=== PATIENT | female | born 1955 | race Caucasian/White ===

== ENCOUNTER → 2024-03-06 11:38 | Outpatient (CLI) | payer OTHER, SELFPAY ==
--- NOTE | 2024-03-06 11:39 | DI.CT.S_ITS ---
PROCEDURE: CT CHEST WO CON INDICATIONS: EVAL OF PULMONARY NODULE,CHRONIC COUGH,ASTHMA TECHNIQUE: Noncontrast 5 mm thick sections acquired from the pulmonary apices to the posterior costophrenic angles. 1 mm lung window, 5 mm thick coronal and sagittal and 7 mm axial MIP reformats were then acquired. For radiation dose reduction, the following was used: automated exposure control, adjustment of mA and/or kV according to patient size. COMPARISON: Outside Facility, [place], CT THORAX W/O CONTRAST, 12/31/2023, 13:35. FINDINGS: Image quality: Diagnostic. Lower Neck: No enlarged lymph nodes. Thyroid: No thyroid nodules which require sonographic follow up, per consensus guidelines. Axillae: No enlarged lymph nodes. Chest Wall: Unremarkable. Bones: Unremarkable. Lungs and Pleura: No pneumothorax or pleural effusions. A 2.5 cm ground-glass opacity in the right lower lobe may potentially represent adenocarcinoma in situ or indolent adenocarcinoma of the right lower lobe. It is not significantly changed in size over slightly greater than the past 2 months. Again noted are linear bibasilar scarring versus atelectasis. Mild emphysematous change. Heart: Heart size is normal. No pericardial effusion. [id number] coronary artery calcifications. Thoracic Vessels: The aorta and pulmonary arteries demonstrate normal size. Mediastinum and Kim: No enlarged lymph nodes. Esophagus: No wall thickening. No hiatal hernia. Upper Abdomen: Visualized upper abdomen solid organs and bowel loops appear normal. IMPRESSION: On short interval follow-up, a 2.5 cm ground-glass opacity in the right lower lobe is not significantly changed. However, it is suspicious for adenocarcinoma in situ or indolent adenocarcinoma of the right lower lobe. Comment: Recommend PET-CT. Dictated by: Michael Wynn M.D. on 03/06/2024 at 20:06 Approved by: Michael Wynn M.D. on 03/06/2024 at 20:12
== END ==
LOC: CT 11:39
PROVIDERS: Referring Provider Internal Medicine Critical Care Medicine; Visit Provider Internal Medicine Critical Care Medicine
DX: J45.30 Mild persistent asthma, uncomplicated (principal); R91.1 Solitary pulmonary nodule; R05.3 Chronic cough; I25.10 Atherosclerotic heart disease of native coronary artery without angina pectoris
CPT/HCPCS: 71250

== ENCOUNTER → 2024-03-30 13:00 | Outpatient (CLI) | payer OTHER, SELFPAY | PROVIDERS: Referring Provider Internal Medicine Critical Care Medicine; Visit Provider Internal Medicine Critical Care Medicine | DX: J45.909 Unspecified asthma, uncomplicated (principal); Z87.891 Personal history of nicotine dependence; R94.2 Abnormal results of pulmonary function studies | CPT/HCPCS: 94060; 94726; 94729 ==

== ENCOUNTER → 2024-05-15 11:01 | Outpatient (CLI) | payer OTHER, SELFPAY ==
--- NOTE | 2024-05-15 11:02 | DI.CT.S_ITS ---
PROCEDURE: CT CHEST WO CON INDICATIONS: follow up nodule TECHNIQUE: Noncontrast 2.0-2.5 mm thick sections acquired from the pulmonary apices to the posterior costophrenic angles. 7 mm thick axial MIP and 5 mm coronal and sagittal reformats were then acquired. For radiation dose reduction, the following was used: automated exposure control, adjustment of mA and/or kV according to patient size. COMPARISON: Outside Facility, RG, CT THORAX W/O CONTRAST, 12/31/2023, 13:35. [facility], CT, CT CHEST WO CON, 03/06/2024, 12:08. FINDINGS: Image quality: Diagnostic. Lower Neck: No enlarged lymph nodes. Thyroid: The study is performed without intravenous contrast. Quality of visualization of the thyroid gland is somewhat limited and with reference to the prior available comparison CT scans right and left side hypodensities have not appreciably changed over the short follow-up interval. Initial CT recommendation was to obtain dedicated thyroid ultrasound unless that had been recently performed. Axillae: No enlarged lymph nodes. Chest Wall: Unremarkable. Bones: Unremarkable. Lungs and Pleura: No pneumothorax or pleural effusions. A vaguely marginated subsolid alveolar radiodensity has been found and followed at the right lower lung. This currently is best seen centered on series 3, image 150, and appears to have slightly enlarged from the comparison 1st available CT. Accurate discrimination of the exact boundaries of this abnormality is not available due to its indistinct margination. It certainly has not diminished in size. It is currently measured at 3.2 cm. Heart: Heart size is normal. No pericardial effusion. Thoracic Vessels: The aorta and pulmonary arteries demonstrate normal size. Mediastinum and Kim: No enlarged lymph nodes. Esophagus: No wall thickening. No hiatal hernia. Upper Abdomen: Visualized upper abdomen solid organs and bowel loops appear normal. The kidneys are not in value aided by this CT scan. It is noted that there appeared to be either prominent peripelvic cysts or hydronephrosis at the left kidney on the initial available CT scan, not previously mentioned. IMPRESSION: 1. A worrisome finding of a 3.2 cm area of subsolid right lower lobe lung nodule near the lower right hilum has been previously identified and this appears to have slightly enlarged. Its exact boundaries are indistinct. In my opinion this is a potential low-grade lung carcinoma, infiltrative. The most recent CT scan had recommended nuclear medicine PET-CT scanning follow-up from the study performed 03/06/24. I concur with that recommendation, especially considering apparent interval enlargement. 2. Not previously mentioned the initial CT scan head included a portion of the left kidney which has an appearance of possible multiple peripelvic cysts or hydronephrosis. The subsequent 2 CT scans have not extended to include the kidneys. Targeted renal ultrasound is recommended given the absence of follow-up assessment since December of this year. 3. The thyroid is included on this study and again shows small hypodensities bilaterally which are not completely characterized. Thyroid ultrasound was recommended and if this has not been performed subsequently it is recommended again as an elective study. Fleischner Society criteria for SOLID lung nodule followup. Nodule size (mm)Low-risk patientHigh-risk patient<6 (single or multiple)No routine followup.Optional CT at 12 months. 6-8 (single or multiple)CT at 6-12 months, then optional CT at 18-24 mo.CT at 6-12 months, then CT at 18-24 months. >8 (single)CT at 3 months, PET-CT, or biopsy. Same as for low-risk pts. >8 (multiple)CT at 3-6 months, then optional CT at 18-24 mo.CT at 3-6 months, then CT at 18-24 months. Fleischner Society criteria for SUB-SOLID lung nodule followup. Solitary pure ground-glass nodules<6 mm (ground glass or part solid)No followup needed. 6 mm or larger (ground glass)CT at 6-12 months to confirm persistence, then CT every 2 years until 5 years.6 mm or larger (part solid)CT at 3-6 months to confirm persistence, then annual CT until 5 years if unchanged and solid component remains <6 mm. Multiple sub-solid nodules<6 mmCT at 3-6 months, then CT consider at 2 & 4 years for high risk patients. [address] at 3-6 months. Subsequent management based on most suspicious lesions. Recommendations do not apply to lung cancer screening, patients with immunosuppression, or patients with known primary cancer. Dictated by: Yifan Artis M.D. on 05/15/2024 at 14:11 Approved by: Yifan Artis M.D. on 05/15/2024 at 14:31
== END ==
LOC: CT 11:02
PROVIDERS: Referring Provider Internal Medicine Critical Care Medicine; Visit Provider Internal Medicine Critical Care Medicine
DX: R91.1 Solitary pulmonary nodule (principal)
CPT/HCPCS: 71250

== ENCOUNTER → 2024-08-17 11:18 | Outpatient (CLI) | payer OTHER, SELFPAY ==
--- NOTE | 2024-08-17 11:19 | DI.CT.S_ITS ---
PROCEDURE: CT CHEST W CON INDICATIONS: enlarging lung nodule TECHNIQUE: After the administration of intravenous contrast, 5 mm thick sections acquired from the pulmonary apices to the posterior costophrenic angles. 1 mm axial lung, 5 mm thick coronal and sagittal reformats and 7 mm axial MIP were acquired. For radiation dose reduction, the following was used: automated exposure control, adjustment of mA and/or kV according to patient size. COMPARISON: [facility], [place], [place] PET CT FUSION SKULL 2 THIGH, 04/22/2024, 17:37. Outside Facility, [place], CT THORAX W/O CONTRAST, 12/31/2023, 13:35. [facility], CT, CT CHEST WO CON, 05/15/2024, 11:10. FINDINGS: Image quality: Diagnostic. Lower Neck: No enlarged lymph nodes. Thyroid: No thyroid nodules which require sonographic follow up, per consensus guidelines. Left thyroid nodule measuring 1 cm. Axillae: No enlarged lymph nodes. Chest Wall: Unremarkable. Bones: No suspicious osseous lesion. Lungs and Pleura: No pneumothorax or pleural effusions. Dependent atelectasis. No consolidation. Central airways are clear. Right lower lobe juxta fissural ground-glass pulmonary nodule measuring 2.7 x 2.1 cm, (3/156), previously 2.8 x 2.4 cm, and more remotely 2.6 x 2.2 cm on 12/31/2023. Heart: Heart size is normal. [id number] coronary artery calcifications. No pericardial effusion. Thoracic Vessels: The aorta and pulmonary arteries demonstrate normal size. Mediastinum and Kim: No enlarged lymph nodes. Esophagus: No wall thickening. No hiatal hernia. Upper Abdomen: Visualized upper abdomen solid organs and bowel loops appear normal. Small cyst in the left liver. IMPRESSION: No new or enlarging pulmonary nodules. Right lower lobe ground-glass pulmonary nodule measuring 2.7 cm is not significantly changed. No adenopathy. Recommend continued imaging surveillance. Dictated by: Delano Baxter M.D. on 08/17/2024 at 14:19 Approved by: Delano Baxter M.D. on 08/17/2024 at 14:27
[2024-08-17 11:44] LABS: Estimated Glomerular Filt Rate > 60 mL/min (>60)
== END ==
PROVIDERS: Radiology Diagnostic Radiology; Referring Provider Internal Medicine Critical Care Medicine; Visit Provider Internal Medicine Critical Care Medicine
DX: R91.1 Solitary pulmonary nodule (principal); E04.1 Nontoxic single thyroid nodule; I25.10 Atherosclerotic heart disease of native coronary artery without angina pectoris
CPT/HCPCS: 36415; 71260; 82565; Q9967